=== PATIENT | male | born 1955 | race Caucasian/White ===

== ENCOUNTER 2017-01-16 10:12 | Emergency (ER) | payer OTHER ==
[~2017-01-16] VITALS: Wt 91.0 kg
--- NOTE | 2017-01-16 11:38 | ERD ---
ER Documentation Chief Complaint Date/Time DATE: 01/16/17 TIME: 11:36 Chief Complaint DYSURIA X 3 DAYS HPI 61-year-old male presents with painful urination, as well as urgency and frequency for the past 3 days. He states that he has had intermittent hematuria as well, complains of history of distant bilateral low back pain for years. He has not had any fevers, chills, nausea, vomiting or abdominal pain. Patient denies any penile discharge. ROS All systems reviewed and are negative except as per history of present illness. Medications Home Meds Active Scripts Hydrocodone/Acetaminophen ([place] 5-325 Tablet) 1 Each Tablet, 1 TAB PO Q6H Y for PAIN, #10 TAB Prov:DARRIN AVALOS PA-C 01/16/17 Cephalexin* (Keflex*) 500 Mg Capsule, 500 MG PO QID for 10 Days, CAP Prov:DARRIN AVALOS PA-C 01/16/17 Allergies Allergies: Coded Allergies: No Known Allergy (Unverified , 01/16/17) PMhx/Soc Hx Alcohol Use: No Hx Substance Use: No Hx Tobacco Use: No Physical Exam Vitals Vital Signs Date Time Temp Pulse Resp B/P Pulse Ox O2 Delivery O2 Flow Rate FiO2 01/16/17 13:14 98.2 92 18 142/88 99 Room Air 01/16/17 10:15 98.0 102 18 157/92 99 Physical Exam General: Well-developed, well-nourished. The patient appears in no acute distress. HEENT: Head is normocephalic, atraumatic. No scleral icterus. Neck: Supple. Nontender. Lungs: Clear to auscultation. Normal air movement. Heart: Regular rate and rhythm. S1 and S2 are normal. No murmurs, gallops, or rubs. Abdomen: Soft, nontender, nondistended. Bowel sounds are normoactive. No CVA tenderness. Extremities: No clubbing or cyanosis. Normal pulses. Moving extremities x 4. No weakness. Neurologic: Alert and oriented 3. No focal deficits. Skin: Normal turgor. No rash or lesions. Result Diagram: 01/16/17 1137 01/16/17 1137 Results 24 hrs Laboratory Tests Test 01/16/17 11:37 White Blood Count 13.910^3/ul Red Blood Count 5.4910^6/ul Hemoglobin 16.4g/dl Hematocrit 49.3% Mean Corpuscular Volume 89.8fl Mean Corpuscular Hemoglobin 29.9pg Mean Corpuscular Hemoglobin Concent 33.3g/dl Red Cell Distribution Width 12.4% Platelet Count 52765^3/UL Mean Platelet Volume 9.6fl Neutrophils % 88.0% Lymphocytes % 6.5% Monocytes % 4.2% Eosinophils % 0.4% Basophils % 0.2% Nucleated Red Blood Cells % 0.0/100WBC Neutrophils # 12.210^3/ul Lymphocytes # 0.910^3/ul Monocytes # 0.610^3/ul Eosinophils # 0.110^3/ul Basophils # 0.010^3/ul Nucleated Red Blood Cells # 0.010^3/ul Urine Color YELLOW Urine Clarity TURBID Urine pH 6.5 Urine Specific [place] >=1.030 Urine Ketones TRACE Urine Nitrite POSITIVE Urine Bilirubin 2+ Urine Ictotest NEGATIVE Urine Urobilinogen 1.0 E.U./dL Urine Leukocyte Esterase 2+ Urine Microscopic RBC >50/HPF Urine Microscopic WBC >200/HPF Urine Epithelial Cells FEW Urine Bacteria FEW Urine Hemoglobin 3+ Urine Glucose NEGATIVE% Urine Total Protein 4+ Sodium Level 142mmol/L Potassium Level 4.6mmol/L Chloride Level 101mmol/L Carbon Dioxide Level 29mmol/L Anion Gap 17 Blood Urea Nitrogen 19mg/dl Creatinine 1.02mg/dl Glucose Level 118mg/dl Calcium Level 9.6mg/dl Total Bilirubin 1.5mg/dl Direct Bilirubin 0.00mg/dl Indirect Bilirubin 1.5mg/dl Aspartate Amino Transf (AST/SGOT) 17IU/L Alanine Aminotransferase (ALT/SGPT) 27IU/L Alkaline Phosphatase 48IU/L Total Protein 7.5g/dl Albumin 4.4g/dl Globulin 3.10g/dl Albumin/Globulin Ratio 1.41 Lipase 71U/L Current Medications Medications (Trade) Dose Ordered Sig/Mark Route PRN Reason Start Time Stop Time Status Last Admin Dose Admin Ceftriaxone Sodium (Rocephin) 50 ml @ 100 mls/hr ONCE ONCE IVPB 01/16/17 12:30 01/16/17 12:30 DC Ceftriaxone Sodium (Rocephin) 1 gm ONCE ONCE IM 01/16/17 12:30 01/16/17 12:31 DC 01/16/17 12:30 Lidocaine (Xylocaine 1% (Mdv) 20 ml) 2 ml ONCE ONCE IM 01/16/17 12:30 01/16/17 12:31 DC 01/16/17 12:30 Procedures/MDM ED course: I offered the patient your urine test, to check for urinary tract infection. He would seem extremely concerned given that this is never happened before, therefore blood was also obtained including CBC, chemistry. MDM: 61-year-old male comes in with painful urination and urgency for the past 2 days. Patient is urine analysis shows nitrate positive urine, as well as many white blood cells. White blood cell count mildly elevated, a renal function was normal. He does not have any history or clinical findings of a kidney stone. He was given Rocephin 1 g, and he is afebrile, does not show any signs of sepsis, renal failure, a endorgan injury, and is appropriate to be discharged home. He will be given antibiotics, urine was also sent for cultures. He is to recheck with his primary care doctor next week. Departure Diagnosis: Primary Impression: UTI (urinary tract infection) Condition: DARRIN Haynes PA-C Jan 16, 2017 11:38
[2017-01-16 11:51] LABS: ADD SCAN DIFF NO
[2017-01-16 11:57] LABS: BASOPHILS % 0.2 % (0.0-2.0); EOSINOPHILS # 0.1 10^3/ul (0.0-0.5); EOSINOPHILS % 0.4 % (0.0-7.0); HEMATOCRIT 49.3 % (42.0-52.0); HEMOGLOBIN 16.4 g/dl (14.0-18.0); LYMPHOCYTES # 0.9 10^3/ul (0.8-2.9); LYMPHOCYTES % 6.5 % (15.0-51.0); MEAN CORPUSCULAR HEMOGLOBIN 29.9 pg (29.0-33.0); MEAN CORPUSCULAR HGB CONC 33.3 g/dl (32.0-37.0); MEAN CORPUSCULAR VOLUME 89.8 fl (82.0-101.0); MEAN PLATELET VOLUME 9.6 fl (7.4-10.4); MONOCYTE # 0.6 10^3/ul (0.3-0.9); MONOCYTES % 4.2 % (0.0-11.0); NEUTROPHIL # 12.2 10^3/ul (1.6-7.5); PLATELET COUNT 215 10^3/UL (140-415); RED BLOOD COUNT 5.49 10^6/ul (4.70-6.10); RED CELL DISTRIBUTION WIDTH 12.4 % (11.5-14.5); WHITE BLOOD COUNT 13.9 10^3/ul (4.8-10.8)
[2017-01-16 11:58] LABS: ADD UMIC YES; URINE BILIRUBIN (Dip) 2+ (NEGATIVE); URINE BLOOD (Dip) 3+ (NEGATIVE); URINE COLOR YELLOW (YELLOW); URINE GLUCOSE (Dip) NEGATIVE (NEGATIVE); URINE KETONES (Dip) TRACE (NEGATIVE); URINE LEUKOCYTE ESTERASE (Dip) 2+ (NEGATIVE); URINE NITRITE (Dip) POSITIVE (NEGATIVE); URINE TOTAL PROTEIN (Dip) 4+ (NEGATIVE); URINE UROBILINOGEN (Dip) 1.0 E.U./dL (0.1-1.0)
[2017-01-16 12:04] LABS: ALBUMIN 4.4 g/dl (3.3-4.9)
[2017-01-16 12:05] LABS: POTASSIUM 4.6 mmol/L (3.5-5.1)
[2017-01-16 12:07] LABS: ALBUMIN/GLOBULIN RATIO 1.41; BILIRUBIN,INDIRECT 1.5 mg/dl (0-1.1); BILIRUBIN,TOTAL 1.5 mg/dl (0.2-1.3); CREATININE 1.02 mg/dl (0.61-1.24); TOTAL PROTEIN 7.5 g/dl (6.1-8.1)
[2017-01-16 12:08] LABS: CALCIUM 9.6 mg/dl (8.4-10.2)
[2017-01-16 12:26] LABS: BACTERIA,URINE FEW; URINE RBCS >50 /HPF (0)
[2017-01-16 12:28] LABS: ICTOTEST NEGATIVE (NEGATIVE)
[2017-01-16] MEDS ORDERED: CEFTRIAXONE 1 GM INJ IM ONE (12:30)
[2017-01-16] MEDS ORDERED: LIDOCAINE 1% (MDV) 20 ML INJ IM ONE (12:30)
[2017-01-16] MEDS ORDERED: CEFTRIAXONE 1 GM/50 ML (PMX) 50 ML IVPB ONE (12:30)
[2017-01-16] MEDS ORDERED: CEPH-443 PO (13:00)
[2017-01-16] MEDS ORDERED: HYDR-906 PO (13:01)
[2017-01-16 13:14] VITALS: BP 142/88; PULSE 92; RESP 18; TEMP 98.2
== END 2017-01-16 13:14 | disposition home or self-care (01) ==
LOC: FTE 10:12
DX: N39.0 Urinary tract infection, site not specified (principal)
CPT/HCPCS: 36415; 80053; 81001; 83690; 85025; 87086; 96372; J0696; Z7502; Z7610; 81003

== ENCOUNTER 2018-05-14 00:04 | Emergency (ER) | END 2018-05-14 05:01 | disposition home or self-care (01) ==